=== PATIENT | female | born 1935 | race African-American/Black ===

== ENCOUNTER 2023-01-19 23:24 | Inpatient (IN) | payer MEDICARE ==
[~2023-01-19] VITALS: Ht 152.4 cm; Wt 68.0 kg
[2023-01-19] MEDS ORDERED: SODIUM CHLORIDE 0.9% 1000ML 1,000 ML IV STA ×2 (23:51→23:53)
[2023-01-20] VITALS (8 sets, daily range): BP systolic 119–202; BP diastolic 68–89; PULSE 55–76; RESP 17–19; TEMP 97.6–98.7; O2SAT 97–100
[2023-01-20 00:33] LABS: BASOPHILS % 0.7 % (0.0-1.0); EOSINOPHILS # (AUTO) 0.2 (0.0-0.4); EOSINOPHILS % 2.9 % (0.0-6.0); HEMATOCRIT 33.9 % (34.2-44.1); HEMOGLOBIN 11.4 g/dL (12.0-16.0); LYMPHOCYTES # (AUTO) 1.3 (1.0-3.2); LYMPHOCYTES % 23.8 % (18.0-39.1); MEAN CORPUSCULAR HEMOGLOBIN 30.6 pg (28-32); MEAN CORPUSCULAR HGB CONC 33.6 g/dL (31-35); MEAN CORPUSCULAR VOLUME 90.9 fL (81-99); MONOCYTES # (AUTO) 0.3 (0.2-0.8); MONOCYTES % 4.9 % (4.4-11.3); NEUTROPHILS # (AUTO) 3.7 (2.1-6.9); NEUTROPHILS % 67.3 % (38.7-80.0); PLATELET COUNT 242 x10e3/uL (140-360); RED BLOOD COUNT 3.73 x10e6/uL (3.6-5.1); RED CELL DISTRIBUTION WIDTH 12.7 % (11.7-14.4)
[2023-01-20 00:46] LABS: ALBUMIN 3.8 g/dL (3.5-5.0); ANION GAP 15.1 mmol/L (8-16); CALCIUM 8.9 mg/dL (8.4-10.2); CREATININE, SERUM 2.14 mg/dL (0.57-1.11); POTASSIUM 4.1 mmol/L (3.5-5.1)
[2023-01-20 00:54] LABS: CREATINE KINASE MB 1.2 ng/mL (0-5.0)
[2023-01-20] MEDS: ONDANSETRON HCL INJ 2MG/ML 2ML 2 MG/ML VIAL IV PRN (03:13)
[2023-01-20] MEDS: Morphine 4mg INJECTION 4 MG/ML INJ IV PRN ×2 (03:13→22:10)
[2023-01-20 03:31] LABS: AMPHETAMINES SCREEN,URINE NEGATIVE (NEGATIVE); BENZODIAZEPINES SCREEN,URINE NEGATIVE (NEGATIVE); PHENCYCLIDINE SCREEN,URINE NEGATIVE (NEGATIVE)
[2023-01-20] MEDS ORDERED: TYLENOL325 MG PO (05:12)
[2023-01-20] MEDS ORDERED: ULTRAM 50MG50 MG PO (05:12)
[2023-01-20] MEDS ORDERED: ASPIRIN81 MG PO (05:12)
[2023-01-20] MEDS ORDERED: FAMOTIDINE20 MG PO (05:12)
[2023-01-20] MEDS ORDERED: BENADRYL25 M1 PO (05:12)
[2023-01-20] MEDS ORDERED: LOSARTAN POTAS100 MG PO (05:12)
[2023-01-20] MEDS ORDERED: CLONIDINE HCL0.3 MG PO (05:12)
[2023-01-20 05:59] LABS: CREATINE KINASE MB 1.2 ng/mL (0-5.0)
[2023-01-20] MEDS ORDERED: ACETAMINOPHEN 325 MG TAB PO PRN (17:00)
[2023-01-20] MEDS: FAMOTIDINE 20 MG TAB PO SCH (17:27)
[2023-01-20] MEDS: TRAMADOL HCL 50 MG TAB PO PRN (17:28)
[2023-01-20] MEDS: HYDRALAZINE HCL 20 MG/ML VIAL IV PRN (17:30)
[2023-01-20] MEDS: CLONIDINE HCL 0.3 MG TAB PO SCH (20:39)
[2023-01-20] MEDS ORDERED: AMLODIPINE BESYLATE 10 MG TAB PO STA (21:32)
[2023-01-21] VITALS (9 sets, daily range): BP systolic 140–188; BP diastolic 63–84; PULSE 62–68; RESP 17–20; TEMP 97.9–98.6; O2SAT 97–99
[2023-01-21] MEDS: Morphine 4mg INJECTION 4 MG/ML INJ IV PRN ×2 (03:52→17:17)
[2023-01-21 05:06] LABS: BASOPHILS % 0.9 % (0.0-1.0); EOSINOPHILS # (AUTO) 0.1 (0.0-0.4); EOSINOPHILS % 2.3 % (0.0-6.0); HEMATOCRIT 31.9 % (34.2-44.1); HEMOGLOBIN 10.5 g/dL (12.0-16.0); LYMPHOCYTES # (AUTO) 1.3 (1.0-3.2); MEAN CORPUSCULAR HEMOGLOBIN 30.8 pg (28-32); MEAN CORPUSCULAR HGB CONC 32.9 g/dL (31-35); MEAN CORPUSCULAR VOLUME 93.5 fL (81-99); MONOCYTES # (AUTO) 0.2 (0.2-0.8); MONOCYTES % 5.3 % (4.4-11.3); NEUTROPHILS # (AUTO) 2.6 (2.1-6.9); NEUTROPHILS % 61.3 % (38.7-80.0); PLATELET COUNT 245 x10e3/uL (140-360); RED BLOOD COUNT 3.41 x10e6/uL (3.6-5.1); RED CELL DISTRIBUTION WIDTH 13.1 % (11.7-14.4)
[2023-01-21 05:28] LABS: ALBUMIN 3.4 g/dL (3.5-5.0); ALBUMIN/GLOBULIN RATIO 0.9 (0.8-2.0); ANION GAP 13.7 mmol/L (8-16); CREATININE, SERUM 1.37 mg/dL (0.57-1.11); POTASSIUM 3.7 mmol/L (3.5-5.1)
[2023-01-21 06:47] LABS: CREATINE KINASE MB 0.9 ng/mL (0-5.0)
[2023-01-21] MEDS: CLONIDINE HCL 0.3 MG TAB PO SCH ×3 (08:54→20:38)
[2023-01-21] MEDS: FAMOTIDINE 20 MG TAB PO SCH ×2 (08:54→17:13)
[2023-01-21] MEDS: LOSARTAN POTASSIUM 100 MG TAB PO SCH (08:54)
[2023-01-21] MEDS: ONDANSETRON HCL INJ 2MG/ML 2ML 2 MG/ML VIAL IV PRN (17:17)
[2023-01-21] MEDS: SODIUM CHLORIDE 0.9% 1000ML 1,000 ML IV SCH (23:31)
[2023-01-22] VITALS (8 sets, daily range): BP systolic 103–198; BP diastolic 57–79; PULSE 52–75; RESP 16–20; TEMP 97.3–98.7; O2SAT 95–99
[2023-01-22] MEDS: TRAMADOL HCL 50 MG TAB PO PRN ×4 (00:30→15:38)
[2023-01-22] MEDS: ACETAMINOPHEN/CODEINE 300MG - 30MG TAB PO PRN ×2 (02:40→21:15)
[2023-01-22] MEDS: HYDRALAZINE HCL 20 MG/ML VIAL IV PRN (04:42)
[2023-01-22] MEDS: ASPIRIN 81 MG CHEW TAB PO SCH (08:55)
[2023-01-22] MEDS: FAMOTIDINE 20 MG TAB PO SCH ×2 (08:56→15:38)
[2023-01-22] MEDS: LOSARTAN POTASSIUM 100 MG TAB PO SCH (08:57)
[2023-01-22] MEDS: NYSTATIN SUSPENSION 5 ML UDC PO SCH ×2 (08:58→15:38)
[2023-01-22] MEDS: CLONIDINE HCL 0.3 MG TAB PO SCH ×3 (08:58→21:17)
[2023-01-22] MEDS: SODIUM CHLORIDE 0.9% 1000ML 1,000 ML IV SCH (12:12)
[2023-01-22 16:22] LABS: ANION GAP 11.9 mmol/L (8-16); CALCIUM 8.8 mg/dL (8.4-10.2); CREATININE, SERUM 1.07 mg/dL (0.57-1.11); MAGNESIUM 1.8 MG/DL (1.3-2.1); PHOSPHORUS 3.7 MG/DL (2.3-4.7); POTASSIUM 3.9 mmol/L (3.5-5.1)
[2023-01-22] MEDS ORDERED: AMLODIPINE BESYLATE 5 MG TAB PO ONE (23:15)
[2023-01-23] VITALS (8 sets, daily range): BP systolic 135–205; BP diastolic 71–90; PULSE 52–85; RESP 17–21; TEMP 97.9–98.5; O2SAT 99–100
[2023-01-23] MEDS: SODIUM CHLORIDE 0.9% 1000ML 1,000 ML IV SCH (01:19)
[2023-01-23] MEDS: Morphine 4mg INJECTION 4 MG/ML INJ IV PRN (01:28)
[2023-01-23] MEDS: HYDRALAZINE HCL 20 MG/ML VIAL IV PRN (04:39)
[2023-01-23] MEDS: ACETAMINOPHEN/CODEINE 300MG - 30MG TAB PO PRN ×3 (04:40→22:13)
[2023-01-23 05:25] LABS: BASOPHILS % 0.6 % (0.0-1.0); EOSINOPHILS # (AUTO) 0.2 (0.0-0.4); EOSINOPHILS % 3.2 % (0.0-6.0); HEMATOCRIT 30.3 % (34.2-44.1); HEMOGLOBIN 10.2 g/dL (12.0-16.0); LYMPHOCYTES # (AUTO) 2.2 (1.0-3.2); LYMPHOCYTES % 47.5 % (18.0-39.1); MEAN CORPUSCULAR HEMOGLOBIN 30.5 pg (28-32); MEAN CORPUSCULAR HGB CONC 33.7 g/dL (31-35); MEAN CORPUSCULAR VOLUME 90.7 fL (81-99); MONOCYTES # (AUTO) 0.3 (0.2-0.8); MONOCYTES % 6.9 % (4.4-11.3); NEUTROPHILS # (AUTO) 1.9 (2.1-6.9); NEUTROPHILS % 41.6 % (38.7-80.0); PLATELET COUNT 214 x10e3/uL (140-360); RED BLOOD COUNT 3.34 x10e6/uL (3.6-5.1); RED CELL DISTRIBUTION WIDTH 12.6 % (11.7-14.4)
[2023-01-23 05:43] LABS: ANION GAP 11.1 mmol/L (8-16); CREATININE, SERUM 0.92 mg/dL (0.57-1.11); POTASSIUM 4.1 mmol/L (3.5-5.1)
[2023-01-23] MEDS: FAMOTIDINE 20 MG TAB PO SCH ×2 (08:26→16:30)
[2023-01-23] MEDS: LOSARTAN POTASSIUM 100 MG TAB PO SCH (08:26)
[2023-01-23] MEDS: NYSTATIN SUSPENSION 5 ML UDC PO SCH ×2 (08:27→16:29)
[2023-01-23] MEDS: CLONIDINE HCL 0.3 MG TAB PO SCH (08:27)
[2023-01-23] MEDS: TRAMADOL HCL 50 MG TAB PO PRN (08:27)
[2023-01-23] MEDS: ASPIRIN 81 MG CHEW TAB PO SCH (08:27)
[2023-01-23] MEDS ORDERED: AMLODIPINE BESYLATE 5 MG TAB PO SCH (09:00)
[2023-01-23] MEDS ORDERED: DIPHENHYDRAMINE HCL 25 MG CAP PO ONE (09:15)
[2023-01-23] MEDS ORDERED: DIPHENHYDRAMINE HCL ELIX 12.5 MG/5 ML UDC PO ONE (09:45)
[2023-01-23] MEDS: METOPROLOL SUCCINATE 50 MG TAB XL PO SCH ×2 (13:53→22:30)
[2023-01-23] MEDS: APIXAB 2.5 MG TABLET PO SCH ×2 (13:53→22:30)
[2023-01-23] MEDS: CLONIDINE HCL 0.1 MG TAB PO SCH ×2 (16:30→22:30)
[2023-01-24] VITALS (7 sets, daily range): BP systolic 143–196; BP diastolic 75–90; PULSE 50–74; RESP 18–20; TEMP 97.8–98.4; O2SAT 98–100
[2023-01-24] MEDS: ACETAMINOPHEN/CODEINE 300MG - 30MG TAB PO PRN ×4 (03:01→20:58)
[2023-01-24] MEDS: FAMOTIDINE 20 MG TAB PO SCH ×3 (06:50→20:58)
[2023-01-24] MEDS: METOPROLOL SUCCINATE 50 MG TAB XL PO SCH ×2 (09:00→20:59)
[2023-01-24] MEDS: NYSTATIN SUSPENSION 5 ML UDC PO SCH ×2 (09:00→16:20)
[2023-01-24] MEDS: AMLODIPINE BESYLATE 5 MG TAB PO SCH (09:00)
[2023-01-24] MEDS: CLONIDINE HCL 0.1 MG TAB PO SCH ×3 (09:19→20:58)
[2023-01-24] MEDS: APIXAB 2.5 MG TABLET PO SCH ×2 (09:19→20:59)
[2023-01-24] MEDS: HYDRALAZINE HCL 25 MG TAB PO SCH ×3 (09:20→21:00)
[2023-01-24] MEDS: ASPIRIN 81 MG CHEW TAB PO SCH (09:21)
[2023-01-24] MEDS: LOSARTAN POTASSIUM 100 MG TAB PO SCH (09:27)
[2023-01-24] MEDS: TRAMADOL HCL 50 MG TAB PO PRN ×2 (10:19→12:48)
[2023-01-25] VITALS (9 sets, daily range): BP systolic 128–209; BP diastolic 59–95; PULSE 50–61; RESP 17–22; TEMP 97.6–98.3; O2SAT 96–100
[2023-01-25] MEDS: ACETAMINOPHEN/CODEINE 300MG - 30MG TAB PO PRN ×5 (02:29→21:55)
[2023-01-25] MEDS: TRAMADOL HCL 50 MG TAB PO PRN ×3 (06:19→18:20)
[2023-01-25] MEDS: ASPIRIN 81 MG CHEW TAB PO SCH (08:10)
[2023-01-25] MEDS: APIXAB 2.5 MG TABLET PO SCH ×2 (08:10→21:55)
[2023-01-25] MEDS: AMLODIPINE BESYLATE 5 MG TAB PO SCH (08:10)
[2023-01-25] MEDS: CLONIDINE HCL 0.1 MG TAB PO SCH ×3 (08:11→21:54)
[2023-01-25] MEDS: LOSARTAN POTASSIUM 100 MG TAB PO SCH (08:11)
[2023-01-25] MEDS: HYDRALAZINE HCL 25 MG TAB PO SCH ×3 (08:11→21:55)
[2023-01-25] MEDS: METOPROLOL SUCCINATE 50 MG TAB XL PO SCH ×2 (08:11→21:54)
[2023-01-25] MEDS: NYSTATIN SUSPENSION 5 ML UDC PO SCH ×2 (08:11→17:00)
[2023-01-25] MEDS: FAMOTIDINE 20 MG TAB PO SCH (17:06)
[2023-01-26] MEDS: TRAMADOL HCL 50 MG TAB PO PRN ×3 (04:40→16:02)
[2023-01-26] MEDS: ACETAMINOPHEN/CODEINE 300MG - 30MG TAB PO PRN ×3 (05:36→21:11)
[2023-01-26 05:45] VITALS: BP 176/63; PULSE 63; RESP 20; TEMP 97.8; O2SAT 100
[2023-01-26] MEDS: ASPIRIN 81 MG CHEW TAB PO SCH (08:43)
[2023-01-26] MEDS: APIXAB 2.5 MG TABLET PO SCH ×2 (08:43→21:10)
[2023-01-26] MEDS: HYDRALAZINE HCL 25 MG TAB PO SCH ×3 (08:43→21:15)
[2023-01-26] MEDS: METOPROLOL SUCCINATE 50 MG TAB XL PO SCH ×2 (08:43→21:10)
[2023-01-26] MEDS: AMLODIPINE BESYLATE 5 MG TAB PO SCH (08:43)
[2023-01-26] MEDS: CLONIDINE HCL 0.1 MG TAB PO SCH ×3 (08:44→21:09)
[2023-01-26] MEDS: NYSTATIN SUSPENSION 5 ML UDC PO SCH ×2 (08:44→16:02)
[2023-01-26] MEDS: FAMOTIDINE 20 MG TAB PO SCH ×2 (08:44→16:03)
[2023-01-26] MEDS: LOSARTAN POTASSIUM 100 MG TAB PO SCH (08:44)
[2023-01-26 09:21] VITALS: BP 187/94; PULSE 55; RESP 20; TEMP 98.8; O2SAT 100
[2023-01-26 09:50] VITALS: BP 187/94; PULSE 55; RESP 20; TEMP 98.8; O2SAT 100
[2023-01-26] MEDS ORDERED: DIPHENHYDRAMINE HCL 25 MG CAP PO ONE (11:30)
[2023-01-26 12:00] VITALS: BP 164/73; PULSE 56; RESP 19; TEMP 98.9; O2SAT 100
[2023-01-26 16:00] VITALS: BP 184/67; PULSE 55; RESP 21; TEMP 98.4; O2SAT 100
[2023-01-26 20:00] VITALS: BP 159/68; PULSE 54; RESP 17; TEMP 97.7; O2SAT 100
[2023-01-27] VITALS (8 sets, daily range): BP systolic 154–176; BP diastolic 54–96; PULSE 52–77; RESP 17–19; TEMP 97.7–98.6; O2SAT 94–100
[2023-01-27] MEDS: TRAMADOL HCL 50 MG TAB PO PRN ×2 (00:47→21:24)
[2023-01-27] MEDS: ACETAMINOPHEN/CODEINE 300MG - 30MG TAB PO PRN ×3 (05:16→18:35)
[2023-01-27] MEDS: NYSTATIN SUSPENSION 5 ML UDC PO SCH ×2 (09:00→17:00)
[2023-01-27] MEDS: METOPROLOL SUCCINATE 50 MG TAB XL PO SCH ×2 (09:31→21:27)
[2023-01-27] MEDS: APIXAB 2.5 MG TABLET PO SCH ×2 (09:32→21:24)
[2023-01-27] MEDS: AMLODIPINE BESYLATE 5 MG TAB PO SCH (09:32)
[2023-01-27] MEDS: ASPIRIN 81 MG CHEW TAB PO SCH (09:32)
[2023-01-27] MEDS: HYDRALAZINE HCL 25 MG TAB PO SCH ×3 (09:33→21:26)
[2023-01-27] MEDS: CLONIDINE HCL 0.1 MG TAB PO SCH ×3 (09:33→21:25)
[2023-01-27] MEDS: FAMOTIDINE 20 MG TAB PO SCH ×2 (09:33→18:31)
[2023-01-27] MEDS: LOSARTAN POTASSIUM 100 MG TAB PO SCH (09:33)
[2023-01-27] MEDS ORDERED: ONDANSETRON HCL 4 MG ORAL DISINTEGRATING TAB PO PRN (13:45)
[2023-01-28] VITALS (8 sets, daily range): BP systolic 139–196; BP diastolic 68–78; PULSE 66–77; RESP 17–20; TEMP 97.8–99.2; O2SAT 96–100
[2023-01-28] MEDS: ACETAMINOPHEN/CODEINE 300MG - 30MG TAB PO PRN ×5 (00:05→18:50)
[2023-01-28] MEDS: HYDRALAZINE HCL 20 MG/ML VIAL IV PRN (01:19)
[2023-01-28] MEDS: TRAMADOL HCL 50 MG TAB PO PRN ×3 (02:56→20:52)
[2023-01-28 04:53] LABS: CLARITY,URINE SL CLOUDY (CLEAR); COLOR,URINE YELLOW (YELLOW); KETONES,URINE NEGATIVE (NEGATIVE); LEUKOCYTE ESTERASE ,URINE TRACE (NEGATIVE); NITRITE,URINE NEGATIVE (NEGATIVE); PROTEIN,URINE DIPSTICK 2+ (NEGATIVE); URINE UROBILINOGEN 0.2 mg/dL (0.2 - 1)
[2023-01-28 05:01] LABS: BACTERIA,URINE MODERATE /HPF; EPITHELIAL CELLS,URINE MODERATE /LPF; RBC,URINE 0-5 /HPF (0-5)
[2023-01-28 05:01] LABS: BASOPHILS # (AUTO) 0.1 (0.0-0.1); EOSINOPHILS # (AUTO) 0.1 (0.0-0.4); HEMATOCRIT 35.8 % (34.2-44.1); HEMOGLOBIN 11.5 g/dL (12.0-16.0); LYMPHOCYTES # (AUTO) 1.9 (1.0-3.2); MEAN CORPUSCULAR HEMOGLOBIN 29.9 pg (28-32); MEAN CORPUSCULAR HGB CONC 32.1 g/dL (31-35); MEAN CORPUSCULAR VOLUME 93.2 fL (81-99); MONOCYTES # (AUTO) 0.4 (0.2-0.8); MONOCYTES % 7.3 % (4.4-11.3); NEUTROPHILS # (AUTO) 3.4 (2.1-6.9); NEUTROPHILS % 57.4 % (38.7-80.0); PLATELET COUNT 341 x10e3/uL (140-360); RED BLOOD COUNT 3.84 x10e6/uL (3.6-5.1)
[2023-01-28 05:31] LABS: ANION GAP 13.3 mmol/L (8-16); CALCIUM 9.4 mg/dL (8.4-10.2); CREATININE, SERUM 0.74 mg/dL (0.57-1.11); POTASSIUM 3.3 mmol/L (3.5-5.1)
[2023-01-28] MEDS: FAMOTIDINE 20 MG TAB PO SCH ×2 (07:42→16:26)
[2023-01-28] MEDS: CLONIDINE HCL 0.1 MG TAB PO SCH ×3 (07:42→20:49)
[2023-01-28] MEDS: ASPIRIN 81 MG CHEW TAB PO SCH (07:42)
[2023-01-28] MEDS: AMLODIPINE BESYLATE 5 MG TAB PO SCH (07:43)
[2023-01-28] MEDS: NYSTATIN SUSPENSION 5 ML UDC PO SCH ×2 (07:44→16:27)
[2023-01-28] MEDS: LOSARTAN POTASSIUM 100 MG TAB PO SCH (07:45)
[2023-01-28] MEDS: METOPROLOL SUCCINATE 50 MG TAB XL PO SCH ×2 (07:47→20:48)
[2023-01-28] MEDS: HYDRALAZINE HCL 25 MG TAB PO SCH (07:47)
[2023-01-28] MEDS: APIXAB 2.5 MG TABLET PO SCH ×2 (07:47→20:46)
[2023-01-28] MEDS ORDERED: POTASSIUM CHLORIDE 10MEQ EA PO ONE (09:45)
[2023-01-28] MEDS: HYDRALAZINE HCL 100 MG TABLET PO SCH ×2 (15:00→20:52)
[2023-01-29 00:21] VITALS: BP 174/68; PULSE 66; RESP 17; TEMP 98; O2SAT 100
[2023-01-29] MEDS: ACETAMINOPHEN/CODEINE 300MG - 30MG TAB PO PRN ×3 (00:42→11:20)
[2023-01-29] MEDS: TRAMADOL HCL 50 MG TAB PO PRN ×2 (02:39→08:09)
[2023-01-29 04:00] VITALS: BP 163/83; PULSE 63; RESP 17; TEMP 98; O2SAT 100
[2023-01-29] MEDS: APIXAB 2.5 MG TABLET PO SCH (08:09)
[2023-01-29] MEDS: FAMOTIDINE 20 MG TAB PO SCH (08:10)
[2023-01-29] MEDS: HYDRALAZINE HCL 100 MG TABLET PO SCH (08:10)
[2023-01-29] MEDS: LOSARTAN POTASSIUM 100 MG TAB PO SCH (08:10)
[2023-01-29] MEDS: ASPIRIN 81 MG CHEW TAB PO SCH (08:11)
[2023-01-29] MEDS: METOPROLOL SUCCINATE 50 MG TAB XL PO SCH (08:12)
[2023-01-29] MEDS: NYSTATIN SUSPENSION 5 ML UDC PO SCH (08:12)
[2023-01-29 08:16] VITALS: BP 184/73; PULSE 64; RESP 18; TEMP 98.2; O2SAT 100
[2023-01-29 09:30] VITALS: BP 184/73; PULSE 64; RESP 18; TEMP 98.2; O2SAT 100
[2023-01-29] MEDS: AMLODIPINE BESYLATE 5 MG TAB PO SCH (11:11)
[2023-01-29 13:40] VITALS: BP 163/90; PULSE 61; RESP 20; TEMP 98.4; O2SAT 100
== END 2023-01-29 15:24 | DRG 305 ==
LOC: ER 23:30 → ERHOLD 01-20 02:02 → MED/SURG2 01-20 03:42 → OBSVTOIN 01-21 22:20 → INTOOBSV 01-22 09:28
PROVIDERS: ADMIT Internal Medicine; ATTEND Internal Medicine
DX: I16.0 Hypertensive urgency (principal); G62.9 Polyneuropathy, unspecified; I10 Essential (primary) hypertension; K21.9 Gastro-esophageal reflux disease without esophagitis; N28.1 Cyst of kidney, acquired; E86.0 Dehydration; D64.9 Anemia, unspecified; I73.00 Raynaud's syndrome without gangrene; I48.0 Paroxysmal atrial fibrillation; M19.90 Unspecified osteoarthritis, unspecified site; E87.6 Hypokalemia; Z79.82 Long term (current) use of aspirin; Z90.49 Acquired absence of other specified parts of digestive tract; Z20.822 Contact with and (suspected) exposure to COVID-19
CPT/HCPCS: 36415; 71045; 76770; 80048; 80053; 80307; 81001; 82550; 82553; 83518; 83690; 83735; 83880; 84100; 84484; 85025; 85379; 87086; 87186; 87252; 93005; 93306; 99285; G0378; J0696; J2270; J2405; J7030